=== PATIENT | male | born 1970 | race Caucasian/White ===

== ENCOUNTER 2019-11-20 20:20 | Emergency (ER) | payer SELFPAY ==
[~2019-11-20] VITALS: Ht 167.6 cm; Wt 95.3 kg
== END 2019-11-20 21:30 | disposition home or self-care (01) ==
LOC: ER 20:20
DX: S06.0X0A Concussion without loss of consciousness, initial encounter (principal); H92.01 Otalgia, right ear; Y04.0XXA Assault by unarmed brawl or fight, initial encounter; Y92.008 Other place in unspecified non-institutional (private) residence as the place of occurrence of the external cause; B20 Human immunodeficiency virus [HIV] disease